=== PATIENT | female | born 1945 | race Caucasian/White ===

== ENCOUNTER 2018-10-03 12:55 | Outpatient (CLI) | payer MEDICARE ==
[~2018-10-03 12:55] MED LIST: CHOL100011 PO; LEVO175T5 PO; LOSA1TAB25 PO; MAGN30TA3 PO; MILN50TA PO; OXYC1TAB8 PO; POTA99TA8 PO; TRAM50TA2 PO
[2018-10-03] MEDS ORDERED: TIZA4CAP PO (13:38)
[2018-10-03] MEDS ORDERED: GABA600T7 PO (13:38)
[2018-10-03] MEDS ORDERED: AMIT50TA PO (13:38)
[2018-10-03] MEDS ORDERED: LOSA25TA25 PO (13:38)
[2018-10-03] MEDS ORDERED: IBUP200C8 PO (14:05)
[2018-10-03 14:46] LABS: ALANINE AMINOTRANSFERASE 31 U/L (12-78); ALBUMIN 3.3 g/dL (3.4-5.0); ANION GAP 7 mmol/L (5-15); CALCIUM 8.8 mg/dL (8.5-10.1); CHLORIDE 105 mmol/L (98-107); CREATININE 1.25 mg/dL (0.55-1.02)
[2018-10-03 14:49] LABS: ALKALINE PHOSPHATASE 124 U/L (45-117); BILIRUBIN,TOTAL 0.2 mg/dL (0.2-1.0)
[2018-10-03 15:00] LABS: BASOPHILS # (AUTO) 0.05 x10^3/uL (0-0.1); BASOPHILS % (AUTO) 1 % (0-1); EOSINOPHILS % (AUTO) 3 % (1-7); LYMPHOCYTES % (AUTO) 19 % (22-44); MD NO; MEAN CORPUSCULAR HGB CONC 31.6 g/dL (32.4-35.8); MEAN CORPUSCULAR VOLUME 88.7 fL (80-100); MEAN PLATELET VOLUME 8.1 fL (7.4-10.4); MONOCYTES # (AUTO) 0.66 x10^3/uL (0.2-0.8); MONOCYTES % (AUTO) 7 % (2-9); NEUTROPHILS # (AUTO) 6.73 x10^3/uL (1.8-6.8); NEUTROPHILS % (AUTO) 71 % (42-75); PLATELET COUNT 266 x10^3/uL (130-400); RED BLOOD COUNT 4.73 x10^6/uL (3.82-5.3); RED CELL DISTRIBUTION WIDTH 16.9 % (9.6-15.2)
== END 2018-10-03 23:59 | disposition home or self-care (01) ==
LOC: STAR 12:55
PROVIDERS: ATTEND Orthopaedic Surgery
DX: Z01.818 Encounter for other preprocedural examination (principal); M17.12 Unilateral primary osteoarthritis, left knee; R00.0 Tachycardia, unspecified
CPT/HCPCS: 36415; 80053; 85025; 87081; 87147; 93005

== ENCOUNTER 2018-10-08 05:54 | Observation (INO) | payer MEDICARE ==
[~2018-10-08] VITALS: Ht 177.8 cm; Wt 130.1 kg
[~2018-10-08 05:54] MED LIST changes: +AMIT50TA PO; +GABA600T7 PO; +IBUP200C8 PO; +LOSA25TA25 PO; +TIZA4CAP PO
[2018-10-08] MEDS ORDERED: VANCOMYCIN 1,000 MG ONE (06:24)
[2018-10-08] MEDS ORDERED: SODIUM CHLORIDE 0.9% 50 ML ONE (06:24)
[2018-10-08] MEDS ORDERED: TRANEXAMIC ACID 100 MG/ML, 10ML ONE (06:24)
[2018-10-08] MEDS ORDERED: ROPIvacaine/PF 0.5%, 20 ML ONE (06:24)
[2018-10-08] MEDS ORDERED: KETOROLAC 60 MG/2 ML ONE (06:25)
[2018-10-08] MEDS ORDERED: EPINEPHRINE 1 MG/ML, 1ML ONE (06:25)
[2018-10-08] MEDS ORDERED: LACTATED RINGERS 1,000 ML IV SCH (06:27)
[2018-10-08] MEDS ORDERED: LIDOCAINE-MPF 1%, 2ML INFIL ONE (06:30)
[2018-10-08] MEDS ORDERED: MIDAZOLAM 1 MG/ML, 2ML ONE (06:43)
[2018-10-08] MEDS ORDERED: FENTANYL PF 250 MCG/5ML ONE (06:43)
[2018-10-08] MEDS ORDERED: OxyconTIN ER 10 MG TAB.ER PO ONE (07:00)
[2018-10-08] MEDS ORDERED: ACETAMINOPHEN 500 MG TABLET PO ONE (07:00)
[2018-10-08] MEDS ORDERED: ROCURONIUM 10 MG/ML,10ML ONE (07:04)
[2018-10-08] MEDS ORDERED: SUCCINYLCHOLINE 20 MG/ML, 10ML ONE (07:04)
[2018-10-08] MEDS ORDERED: METOPROLOL 1 MG/ML, 5ML ONE (07:45)
[2018-10-08] MEDS ORDERED: hydrALAzine 20 MG/ML, 1ML ONE (07:51)
[2018-10-08] MEDS ORDERED: DEXAMETHASONE 4 MG/ML, 1ML ONE (07:54)
[2018-10-08] MEDS ORDERED: LIDOCAINE-MPF 2% ,5ML ONE (07:54)
[2018-10-08] MEDS ORDERED: BUPIVACAINE/PF 0.25% ONE (07:54)
[2018-10-08] MEDS ORDERED: CEFAZOLIN 1,000 MG ONE ×2 (07:54)
[2018-10-08] MEDS ORDERED: ONDANSETRON 2MG/ML, 2ML ONE (07:54)
[2018-10-08] MEDS ORDERED: PROPOFOL 10 MG/ML, 20ML ONE (07:54)
[2018-10-08] MEDS ORDERED: HYDROmorphone 2 MG/ML, 1ML IVPush PRN (08:00)
[2018-10-08] MEDS ORDERED: PROMETHAZINE 25 MG/ML, 1ML IV PRN (08:00)
[2018-10-08] MEDS ORDERED: SCOPOLAMINE PATCH, 1.5MG PATCH.TD72 TD PRN (08:00)
[2018-10-08] MEDS ORDERED: METOPROLOL 1 MG/ML, 5ML IV PRN (08:00)
[2018-10-08] MEDS ORDERED: ONDANSETRON 2MG/ML, 2ML IV PRN (08:00)
[2018-10-08] MEDS ORDERED: ALBUTEROL/IPRATROPIUM 2.5MG/0.5MG, 3 ML NPPB PRN (08:00)
[2018-10-08] MEDS ORDERED: MEPERIDINE/PF 25MG/0.5ML IVPush PRN (08:00)
[2018-10-08] MEDS ORDERED: MIDAZOLAM 1 MG/ML, 2ML IV PRN (08:00)
[2018-10-08] MEDS ORDERED: hydrALAzine 20 MG/ML, 1ML IV PRN (08:00)
[2018-10-08] MEDS ORDERED: OXYcodone 5 MG/5 ML ORAL.SOL UDC PO PRN (08:00)
[2018-10-08] MEDS: D5%-0.45% NACL 1,000 ML IV SCH ×2 (08:48→13:56)
[2018-10-08] MEDS ORDERED: ZOLPIDEM 5MG TABLET PO PRN (09:00)
[2018-10-08] MEDS ORDERED: DIAZEPAM 5 MG TABLET PO PRN (09:00)
[2018-10-08] MEDS ORDERED: OXYcodone/APAP 5/325MG TABLET PO PRN (09:00)
[2018-10-08] MEDS ORDERED: PROMETHAZINE 25 MG/ML, 1ML IM PRN (09:00)
[2018-10-08] MEDS ORDERED: ACETAMINOPHEN 650 MG/20.3 ML UDC PO PRN (09:00)
[2018-10-08] MEDS ORDERED: DIPHENHYDRAMINE 50 MG/ML, 1ML IVPush PRN (09:00)
[2018-10-08] MEDS ORDERED: BISACODYL 10 MG SUPP PR PRN (09:00)
[2018-10-08] MEDS ORDERED: SENNA/DOCUSATE TABLET PO PRN (09:00)
[2018-10-08] MEDS ORDERED: DIPHENHYDRAMINE 25 MG CAPSULE PO PRN (09:00)
[2018-10-08] MEDS ORDERED: LORazepam 1MG TABLET PO PRN (09:00)
[2018-10-08] MEDS ORDERED: PSYLLIUM PACKET PO PRN (09:00)
[2018-10-08] MEDS ORDERED: ALUMINUM/MAG/SIMETHICONE 30 ML UDC PO PRN (09:00)
[2018-10-08] MEDS ORDERED: POLYETHYLENE GLYCOL 17 GM PACKET PO PRN (09:00)
[2018-10-08] MEDS ORDERED: TIZANIDINE 4MG TABLET PO PRN (09:00)
[2018-10-08] MEDS ORDERED: ONDANSETRON 2MG/ML, 2ML IVPush PRN (09:00)
[2018-10-08] MEDS ORDERED: METOCLOPRAMIDE 10MG TABLET PO PRN (09:00)
[2018-10-08] MEDS ORDERED: ONDANSETRON 4 MG TABLET PO PRN (09:00)
[2018-10-08] MEDS ORDERED: HYDROmorphone 1 MG/ML, 1ML INJ IVPush PRN (09:00)
[2018-10-08] MEDS ORDERED: MAGNESIUM HYDROXIDE 8%, 30ML UDC PO PRN (09:00)
[2018-10-08] MEDS ORDERED: PROMETHAZINE 12.5 MG SUPP PR PRN (09:00)
[2018-10-08] MEDS ORDERED: TRANEXAMIC ACID 1,000 MG in SODIUM CHLORIDE 0.9% 100 ML IVPB ONE (09:15)
[2018-10-08] MEDS ORDERED: FENTANYL PF 100 MCG/2ML ONE (09:19)
[2018-10-08] MEDS: FENTANYL PF 100 MCG/2ML IV PRN ×3 (09:25→09:55)
[2018-10-08] MEDS ORDERED: PROMETHAZINE 25 MG/ML, 1ML ONE (10:03)
[2018-10-08] MEDS: LEVOTHYROXINE 175 MCG TABLET PO SCH (11:47)
[2018-10-08] MEDS: GABAPENTIN 300 MG CAPSULE PO SCH ×3 (11:48→22:33)
[2018-10-08] MEDS: LOSARTAN 25MG TABLET PO SCH (11:48)
[2018-10-08] MEDS: MULTIVITAMINS/MINERALS TABLET PO SCH (11:49)
[2018-10-08] MEDS: ASCORBIC ACID 500 MG TABLET PO SCH (11:49)
[2018-10-08] MEDS: CALCIUM/VITAMIN D3 250-125 TABLET PO SCH ×2 (11:50→16:57)
[2018-10-08] MEDS: FERROUS SULFATE 325 MG TABLET PO SCH ×2 (11:50→16:57)
[2018-10-08] MEDS: ACETAMINOPHEN 500 MG TABLET PO SCH ×2 (11:50→17:59)
[2018-10-08] MEDS: DOCUSATE 100 MG CAPSULE PO SCH ×2 (11:50→22:34)
[2018-10-08 13:37] VITALS: BP 120/67
[2018-10-08] MEDS: KETOROLAC 30 MG/1 ML IV SCH ×2 (13:54→22:33)
[2018-10-08] MEDS: OXYcodone IR 5MG TABLET PO PRN ×2 (13:54→17:59)
[2018-10-08] MEDS: CEFAZOLIN PMX 1GM/50ML 50 ML IVPB SCH ×2 (15:29→22:34)
[2018-10-08 19:38] VITALS: BP 109/71
[2018-10-08] MEDS: AMITRIPTYLINE 50 MG TABLET PO SCH (22:33)
[2018-10-09 00:43] VITALS: BP 116/74
[2018-10-09] MEDS: ACETAMINOPHEN 500 MG TABLET PO SCH ×4 (00:50→17:44)
[2018-10-09] MEDS: D5%-0.45% NACL 1,000 ML IV SCH ×3 (04:48→19:58)
[2018-10-09 05:07] VITALS: BP 122/75
[2018-10-09] MEDS ORDERED: DEXAMETHASONE 4 MG/ML, 1ML IVPush ONE (06:00)
[2018-10-09] MEDS: LEVOTHYROXINE 175 MCG TABLET PO SCH (06:00)
[2018-10-09] MEDS ORDERED: LEVOTHYROXINE 75 MCG TABLET ONE (06:10)
[2018-10-09] MEDS ORDERED: LEVOTHYROXINE 100 MCG TABLET ONE (06:10)
[2018-10-09] MEDS: KETOROLAC 30 MG/1 ML IV SCH (06:16)
[2018-10-09] MEDS: ASPIRIN 81 MG TABLET EC PO SCH ×2 (06:16→16:49)
[2018-10-09] MEDS: GABAPENTIN 300 MG CAPSULE PO SCH ×4 (06:16→20:43)
[2018-10-09] MEDS: FERROUS SULFATE 325 MG TABLET PO SCH ×2 (08:24→17:44)
[2018-10-09] MEDS: LOSARTAN 25MG TABLET PO SCH (08:24)
[2018-10-09] MEDS: DOCUSATE 100 MG CAPSULE PO SCH ×2 (08:24→20:44)
[2018-10-09] MEDS: ASCORBIC ACID 500 MG TABLET PO SCH (08:24)
[2018-10-09] MEDS: CALCIUM/VITAMIN D3 250-125 TABLET PO SCH ×3 (08:25→16:49)
[2018-10-09] MEDS: MULTIVITAMINS/MINERALS TABLET PO SCH (08:25)
[2018-10-09] MEDS: OXYcodone IR 5MG TABLET PO PRN ×2 (08:27→20:43)
[2018-10-09 13:27] VITALS: BP 114/56
[2018-10-09 19:45] VITALS: BP 119/68
[2018-10-09] MEDS: AMITRIPTYLINE 50 MG TABLET PO SCH (20:44)
[2018-10-10 00:51] VITALS: BP 124/69
[2018-10-10] MEDS: OXYcodone IR 5MG TABLET PO PRN ×2 (02:53→09:41)
[2018-10-10] MEDS ORDERED: LEVOTHYROXINE 75 MCG TABLET ONE (05:46)
[2018-10-10] MEDS ORDERED: LEVOTHYROXINE 100 MCG TABLET ONE (05:46)
[2018-10-10] MEDS: LEVOTHYROXINE 175 MCG TABLET PO SCH (05:49)
[2018-10-10] MEDS: GABAPENTIN 300 MG CAPSULE PO SCH ×3 (05:49→16:22)
[2018-10-10] MEDS: ACETAMINOPHEN 500 MG TABLET PO SCH ×3 (05:49→12:10)
[2018-10-10] MEDS: ASPIRIN 81 MG TABLET EC PO SCH ×2 (06:00→16:22)
[2018-10-10] MEDS ORDERED: HYDROmorphone 1 MG/ML, 1ML VIAL ONE (06:05)
[2018-10-10] MEDS ORDERED: methylPREDNISolone 4mg DOSE PACK PO ONE (07:00)
[2018-10-10] MEDS ORDERED: KETOROLAC 30 MG/1 ML IM PRN (07:30)
[2018-10-10] MEDS ORDERED: ASPI81TA45 PO (08:20)
[2018-10-10 08:43] VITALS: BP 133/73
[2018-10-10] MEDS: ASCORBIC ACID 500 MG TABLET PO SCH (09:35)
[2018-10-10] MEDS: MULTIVITAMINS/MINERALS TABLET PO SCH (09:36)
[2018-10-10] MEDS: CALCIUM/VITAMIN D3 250-125 TABLET PO SCH ×3 (09:36→16:22)
[2018-10-10] MEDS: LOSARTAN 25MG TABLET PO SCH (09:36)
[2018-10-10] MEDS: DOCUSATE 100 MG CAPSULE PO SCH (09:36)
[2018-10-10] MEDS: FERROUS SULFATE 325 MG TABLET PO SCH (09:36)
[2018-10-10] MEDS: D5%-0.45% NACL 1,000 ML IV SCH (10:48)
[2018-10-10 13:21] VITALS: BP 113/68
[2018-10-10 17:29] VITALS: BP 112/65
== END 2018-10-10 17:43 | disposition home or self-care (01) ==
LOC: OUT 05:54 → INTOOBSV 08:48 → OBSVTOIN 08:48 → OUT 08:48 → 4NOR 08:48
PROVIDERS: ADMIT Orthopaedic Surgery; ATTEND Orthopaedic Surgery
DX: M17.12 Unilateral primary osteoarthritis, left knee (principal); M21.00 Valgus deformity, not elsewhere classified, unspecified site; I10 Essential (primary) hypertension; G47.33 Obstructive sleep apnea (adult) (pediatric); E78.5 Hyperlipidemia, unspecified; E66.01 Morbid (severe) obesity due to excess calories; J45.909 Unspecified asthma, uncomplicated; Z79.899 Other long term (current) drug therapy
CPT/HCPCS: 27447; 36415; 73560; 85014; 85018; 96365; 96366; 96375; 96376; 97116; 97150; 97161; 97166; 97530; 97535; C1713; C1776; G0378; J0171; J0330; J0360; J0690; J1100; J1170; J1885; J2250; J2405; J2550; J2704; J2795; J3010; J3370; J3490; J7120; J7509

== ENCOUNTER → 2019-09-14 | Outpatient (CLI) | payer MEDICARE ==
[~2019-09-14] MED LIST changes: +ASPI81TA45 PO
== END | disposition home or self-care (01) ==
LOC: CVU 15:36
PROVIDERS: ATTEND Internal Medicine Cardiovascular Disease
DX: I08.0 Rheumatic disorders of both mitral and aortic valves (principal); I11.9 Hypertensive heart disease without heart failure; I48.0 Paroxysmal atrial fibrillation
CPT/HCPCS: 93306

== ENCOUNTER → 2019-09-21 | Outpatient (CLI) | payer MEDICARE ==
[~2019-09-21] MED LIST changes: +REGADENOSON 0.4 MG/5 ML SYRINGE ONE
== END | disposition home or self-care (01) ==
LOC: CFH 12:53
PROVIDERS: ATTEND Internal Medicine Cardiovascular Disease
DX: I48.0 Paroxysmal atrial fibrillation (principal); R07.89 Other chest pain
CPT/HCPCS: 78452; 93017; A9502; J2785

== ENCOUNTER → 2020-03-30 | Outpatient (CLI) | payer MEDICARE ==
[~2020-03-30] MED LIST changes: +MULT-252 PO; -REGADENOSON 0.4 MG/5 ML SYRINGE ONE; +RIVA20TA PO; +ROSU5TAB PO; +SOTA80TA PO; +UBID50TA3 PO; +Vitamin D PO
[2020-03-30 12:54] LABS: BASOPHILS % (AUTO) 1 % (0-1); EOSINOPHILS % (AUTO) 5 % (1-7); LYMPHOCYTES % (AUTO) 27 % (22-44); MEAN CORPUSCULAR HEMOGLOBIN 27.5 pg (27.0-34.8); MEAN CORPUSCULAR HGB CONC 31.9 g/dL (32.4-35.8); MEAN PLATELET VOLUME 8.2 fL (7.4-10.4); MONOCYTES % (AUTO) 7 % (2-9); NEUTROPHILS % (AUTO) 60 % (42-75); PLATELET COUNT 288 x10^3/uL (130-400); RED BLOOD COUNT 4.78 x10^6/uL (3.82-5.3); RED CELL DISTRIBUTION WIDTH 15.9 % (9.6-15.2)
[2020-03-30 12:55] LABS: MD NO
[2020-03-30 13:03] LABS: ANION GAP 5 mmol/L (5-15); CALCIUM 8.9 mg/dL (8.5-10.1); CHLORIDE 110 mmol/L (98-107); CREATININE 1.18 mg/dL (0.55-1.02)
== END | disposition home or self-care (01) ==
LOC: STAR 10:24
PROVIDERS: ATTEND Orthopaedic Surgery
DX: Z01.812 Encounter for preprocedural laboratory examination (principal); Z20.828 Contact with and (suspected) exposure to other viral communicable diseases; M17.11 Unilateral primary osteoarthritis, right knee; R94.31 Abnormal electrocardiogram [ECG] [EKG]
CPT/HCPCS: 36415; 80048; 85025; 87081; 87635; 93005